=== PATIENT | female | born 1965 | race Caucasian/White ===

== ENCOUNTER 2018-12-12 15:34 | Emergency (ER) | payer BC ==
[2018-12-12 15:51] VITALS: BP 180/105
--- NOTE | 2018-12-12 15:53 | EDPHY ---
H & P Time Seen by Provider: 12/12/18 15:41 HPI/ROS: HPI DVT in left calf. 53-year-old female by private vehicle from her clinic. The patient was evaluated for left calf and ankle swelling which she noticed about a week ago. She has a history of 2 relatively recent long flights from [facility] to [facility] in mid October and from [facility] back to [place] in late October. She reports that she noticed her calf/ankle swelling on the left side about a week ago. She was seen at a clinic which is associated with her employer today. She had an ultrasound done at that clinic which demonstrated an occlusive thrombus within the peroneal vein of the left calf. The nurse practitioner who is working at that clinic and treating her did not feel comfortable prescribing her anticoagulation so she was referred here for treatment. Her primary care physician is Dr. Wade but she has not seen this physician in at least 2 years. She has had no associated shortness of breath. No chest pain. Denies any calf pain or tenderness. No fever. ROS: Constitutional: No fever, no chills. No weakness. Respiratory: No cough. No shortness of breath. Cardiac: No chest pain, no palpitations. Gastrointestinal: No abdominal pain, no vomiting, no diarrhea. Musculoskeletal: No back pain. No neck pain. As above. Skin: No rashes. Neurological: No headache. No focal weakness or altered sensation. Past medical history: Type 1 diabetes, thyroid cancer, thyroidectomy, hypertension, hyperlipidemia, hysterectomy, hand surgery. As above. Social history: Nonsmoker. Here by herself. No alcohol. Physical Exam: General Appearance: Alert, no distress. This patient is responding to questions appropriately and in full sentences. This patient appears well- hydrated and well-nourished. Eyes: Pupils equal and round no pallor or injection. No lid edema, erythema or injection. Respiratory: There are no retractions, lungs are clear to auscultation with good air movement bilaterally. Cardiovascular: Regular rate and rhythm. No murmur. Neurological: Motor sensory function is grossly intact. Cranial nerves are normal. Gait is normal. Skin: Warm and dry, no rashes. Musculoskeletal: Neck is supple and nontender. Examination of the left lower extremity reveals a slight asymmetry involving the ankle and distal leg relative to the right lower extremity. There are no palpable cords. No tenderness on palpation of this area. Negative Jessica sign. No erythema or pitting edema noted. No warmth. The left lower extremity is neurovascularly intact. All joints range without pain or impingement. Psychiatric: No agitation. No depression. Database: EKG: Imaging: Imaging report from [facility], left lower extremity Doppler ultrasound : Significant for occlusive thrombus of the peroneal vein. The report was sign by Dr. Lopez. Procedures: Emergency department course: Triage vital signs reviewed. I explained to the patient that it was important that she have her primary care physician manage her treatment of this DVT and anticoagulation. However, I told her I would start her on Xarelto. She has a normal creatinine from April of 2018. She is in agreement with this plan. She will follow up with her primary care physician within the next week for re- evaluation and ongoing management. Return to emergency department precautions were reviewed with her. All of her questions were answered. She was discharged in good condition with a starter prescription for Xarelto. Differential Diagnosis: The differential diagnosis on this patient includes but is not limited to DVT left lower extremity. Traumatic injury to the left lower extremity, pulmonary embolism, cellulitis unlikely. This represents a partial list of diagnoses considered. These considerations are based on history, physical exam, past history, reassessment and diagnostic testing. Constitutional: Initial Vital Signs Temperature (C) 36.7 C 12/12/18 15:42 Heart Rate 82 12/12/18 15:42 Respiratory Rate 18 12/12/18 15:42 Blood Pressure 180/105 H 12/12/18 15:42 O2 Sat (%) 97 12/12/18 15:42 O2 Delivery Mode Room Air Allergies/Adverse Reactions: codeine [Codeine] Allergy (Mild, Verified 12/12/18 15:41) Home Medications: Medication Instructions Recorded Insulin Glargine,Hum.rec.anlog 21 unit SQ 02/18/12 [Lantus] Insulin Lispro [Humalog] 100 unit SQ 02/18/12 Levothyroxine [Synthroid 100 mcg 100 mcg PO DAILY06 02/18/12 (RX)] Lisinopril [Zestril 10 mg (RX)] 10 mg PO DAILY 02/18/12 Simvastatin [Zocor 20 mg (RX)] 40 mg PO DAILY18 02/18/12 Metformin HCl 12/12/18 Premarin 12/12/18 Rivaroxaban [Xarelto 15mg (*)] 15 mg PO BID 21 Days tab 12/12/18 Departure - Departure Disposition: Home, Routine, Self-Care Clinical Impression: Left leg DVT Condition: Good Instructions: Rivaroxaban (By mouth), Deep Vein Thrombosis (ED), Deep Vein Thrombosis Prevention (ED) Additional Instructions: Read and follow provided instructions. Follow-up with your primary care physician, Dr. Wade or with [facility] within the next week for re-evaluation as discussed. It is very important that your primary care physician monitors the treatment of you're DVT and your dosing of rivaroxaban. Take medication as prescribed only. I have prescribed you the initial 21 day treatment for Xarelto. This is a twice daily dosing. Your primary care physician will then have to determine if you need to be continued on this medication with a once daily dosing. Your primary care physician will also have to monitor your kidney function and any possible interactions with your other medications. Return to the emergency department for worsening symptoms, worsening leg pain, worsening swelling, redness to the area, fever, chest pain, shortness of breath or other serious concerns. Referrals: Salome Wade MD [Medical Doctor] - As per Instructions [facility] [Outside] - As per Instructions Prescriptions: Rivaroxaban [Xarelto 15mg (*)] 15 mg PO BID 21 Days tab
== END 2018-12-12 16:10 | disposition home or self-care (01) ==
LOC: CED 15:34
DX: I82.4Z2 Acute embolism and thrombosis of unspecified deep veins of left distal lower extremity (principal); E10.9 Type 1 diabetes mellitus without complications; I10 Essential (primary) hypertension; E78.5 Hyperlipidemia, unspecified
CPT/HCPCS: 99283-ER